=== PATIENT | female | born 1940 | race Hispanic/Latino ===

== ENCOUNTER 2018-10-05 11:19 | Day surgery (SDC) | payer MEDICARE, OTHER ==
[~2018-10-05 11:19] MED LIST: AK-Dilate ONE; IOPIDINE ONE; MYDRIACYL ONE; NEOFRIN ONE
[2018-10-05] MEDS ORDERED: NEOFRIN OD ONE (11:43)
[2018-10-05] MEDS ORDERED: MYDRIACYL OD ONE (11:43)
[2018-10-05] MEDS ORDERED: IOPIDINE OD ONE ×2 (11:43→12:22)
[2018-10-05 11:52] VITALS: BP 152/62
== END 2018-10-05 12:26 | disposition home or self-care (01) ==
LOC: OR 11:19
PROVIDERS: ATTEND Ophthalmology
DX: H26.491 Other secondary cataract, right eye (principal); E78.00 Pure hypercholesterolemia, unspecified; K21.9 Gastro-esophageal reflux disease without esophagitis; M19.90 Unspecified osteoarthritis, unspecified site; Z85.89 Personal history of malignant neoplasm of other organs and systems; Z85.3 Personal history of malignant neoplasm of breast; Z79.899 Other long term (current) drug therapy; Z98.41 Cataract extraction status, right eye; Z98.42 Cataract extraction status, left eye; Z98.890 Other specified postprocedural states